=== PATIENT | male | born 1935 | race Caucasian/White ===

== ENCOUNTER 2018-10-17 12:10 | Inpatient (IN) | payer MEDICARE, OTHER ==
[~2018-10-17] VITALS: Ht 185.4 cm; Wt 77.0 kg
[~2018-10-17 12:10] MED LIST: HYDR-3972 PO; LISI10TA4 PO
[2018-10-17 13:13] LABS: BASOPHILS % (AUTO) 0.3 % (0-1); EOSINOPHILS % (AUTO) 0.2 % (0-6); HEMATOCRIT 31.8 % (42.0-52.0); HEMOGLOBIN 11.2 g/dl (14.0-17.9); LYMPHOCYTES # (AUTO) 0.7 X10'3 (1.1-4.8); LYMPHOCYTES % (AUTO) 9.6 % (21-51); MEAN CORPUSCULAR HEMOGLOBIN 33.1 PG (27.0-31.0); MEAN CORPUSCULAR HGB CONC 35.2 g/dL (33.0-36.5); MEAN CORPUSCULAR VOLUME 93.8 FL (78-98); MONOCYTES % (AUTO) 13.4 % (2-12); NEUTROPHILS # (AUTO) 5.7 X10'3 (1.8-7.7); NEUTROPHILS % (AUTO) 76.5 % (42-75); PLATELET COUNT 118 X10'3 (140-440); RED BLOOD COUNT 3.39 X10'6 (4.70-6.10); RED CELL DISTRIBUTION WIDTH 16.1 % (11.5-14.5); WHITE BLOOD COUNT 7.4 X10'3 (4.5-11.0)
[2018-10-17 13:27] LABS: CLARITY,URINE CLEAR (Clear); COLOR,URINE YELLOW (Yellow); GLUCOSE, URINE NEGATIVE (Neg); KETONES,URINE TRACE mg/dl (Neg); LEUKOCYTE ESTERASE ,URINE NEGATIVE (Neg); NITRITES, URINE NEGATIVE (Neg); OCCULT BLOOD,URINE NEGATIVE (Neg); PH,URINE 5.5 (4.8-8.0); PROTEIN,URINE NEGATIVE (Neg); UROBILINOGEN,URINE 0.2 E.U/dL (0.2-1.0)
[2018-10-17 13:30] LABS: UA COLLECTION TYPE FOLEY CATH
[2018-10-17 13:38] LABS: INR 1.2 INR; PARTIAL THROMBOPLASTIN TIME 29 SECONDS (22-32)
[2018-10-17 13:40] LABS: ALANINE AMINOTRANSFERASE 24 U/L (12-78); ALBUMIN 3.5 G/DL (3.4-5.0); ALBUMIN/GLOBULIN RATIO 0.9 (1.1-1.5); ALKALINE PHOSPHATASE 62 IU/L (46-116); ANION GAP 7 (8-16); ASPARTATE AMINO TRANSFERASE 30 U/L (10-37); BILIRUBIN,TOTAL 1.8 MG/DL (0.1-1.0); BLOOD UREA NITROGEN 26 MG/DL (7-18); BUN/CREATININE RATIO 25.7 (5.4-32.0); CALCIUM 10.1 MG/DL (8.5-10.1); CHLORIDE 106 MMOL/L (99-107); CREATINE KINASE 538 U/L (39-308); CREATININE 1.01 MG/DL (0.60-1.10); GLUCOSE 116 MG/DL (70-104); SODIUM 141 MMOL/L (135-145); TOTAL CARBON DIOXIDE 27.6 MMOL/L (24-32); TOTAL PROTEIN 7.4 G/DL (6.4-8.2); eGFR 70 ML/MIN
[2018-10-17] MEDS ORDERED: acetaminophen 325mg tablet PO PRN ×2 (13:45)
[2018-10-17] MEDS ORDERED: potassium Cl 40MEQ/NS 500ml 500 ML IV PRN ×2 (13:45)
[2018-10-17] MEDS: normal saline 1000ml 1,000 ML IV SCH ×2 (13:45→17:52)
[2018-10-17] MEDS ORDERED: magnesium 4gm in 100ml NS 100 ML IV PRN (13:45)
[2018-10-17] MEDS ORDERED: mag hydrox/Alum hydrox/simeth 30ml oral suspension PO PRN (13:45)
[2018-10-17] MEDS ORDERED: magnesium 2GM in 50ml NS 50 ML IV PRN (13:45)
[2018-10-17] MEDS ORDERED: docusate sod 100mg capsule PO PRN (13:45)
[2018-10-17] MEDS ORDERED: ondansetron/PF 4mg/2ml inj IV PRN (13:45)
[2018-10-17] MEDS ORDERED: magnesium Cl slow-release 64mg tablet PO PRN (13:45)
[2018-10-17] MEDS ORDERED: potassium Cl 20 mEq SR tablet PO PRN ×2 (13:45)
[2018-10-17] MEDS ORDERED: normal saline 1000ML IV soln IVB ONE (13:50)
[2018-10-17] MEDS ORDERED: enalaprilat dihydrate 2.5mg/2ml vial IV PRN (13:55)
[2018-10-17] MEDS: HYDROmorphone 1 mg/ml syringe IV PRN ×3 (13:59→23:24)
--- NOTE | 2018-10-17 14:47 | NUR ---
Pt with admit orders report called to floor. Pt at bedside no apparent distress
--- NOTE | 2018-10-17 14:59 | NUR ---
I have received report from Meg in the ED and gave report to Cassy RIVAS
[2018-10-17 15:00] VITALS: BP 113/83
[2018-10-17 18:00] VITALS: BP 130/70
--- NOTE | 2018-10-17 18:34 | NUR ---
Problems reprioritized. Patient report given, questions answered & plan of care reviewed with Katie RIVAS.
--- NOTE | 2018-10-17 19:00 | NUR ---
Patient in room ORTHO 4023. I have received report from Katie Benítez RN and had the opportunity to ask questions and assume patient care.
[2018-10-17 22:00] VITALS: BP 108/59
[2018-10-18] VITALS (27 sets, daily range): BP systolic 97–160; BP diastolic 40–89
[2018-10-18] MEDS: HYDROmorphone 1 mg/ml syringe IV PRN (03:33)
[2018-10-18] MEDS: normal saline 1000ml 1,000 ML IV SCH (03:39)
[2018-10-18 06:03] LABS: BASOPHILS % (AUTO) 0.5 % (0-1); EOSINOPHILS # (AUTO) 0.1 X10'3 (0-0.9); EOSINOPHILS % (AUTO) 2.1 % (0-6); HEMATOCRIT 25.5 % (42.0-52.0); HEMOGLOBIN 8.9 g/dl (14.0-17.9); LYMPHOCYTES # (AUTO) 0.9 X10'3 (1.1-4.8); LYMPHOCYTES % (AUTO) 15.2 % (21-51); MEAN CORPUSCULAR HGB CONC 34.8 g/dL (33.0-36.5); MEAN CORPUSCULAR VOLUME 94.9 FL (78-98); MEAN PLATELET VOLUME 7.8 FL (7.4-10.4); MONOCYTES # (AUTO) 0.9 X10'3 (0-0.9); MONOCYTES % (AUTO) 14.8 % (2-12); NEUTROPHILS # (AUTO) 3.9 X10'3 (1.8-7.7); NEUTROPHILS % (AUTO) 67.4 % (42-75); PLATELET COUNT 101 X10'3 (140-440); RED BLOOD COUNT 2.69 X10'6 (4.70-6.10); RED CELL DISTRIBUTION WIDTH 16.1 % (11.5-14.5); WHITE BLOOD COUNT 5.8 X10'3 (4.5-11.0)
[2018-10-18 06:36] LABS: ALANINE AMINOTRANSFERASE 21 U/L (12-78); ALBUMIN 2.7 G/DL (3.4-5.0); ALBUMIN/GLOBULIN RATIO 0.8 (1.1-1.5); ALKALINE PHOSPHATASE 47 IU/L (46-116); ANION GAP 6 (8-16); ASPARTATE AMINO TRANSFERASE 24 U/L (10-37); BILIRUBIN,TOTAL 0.9 MG/DL (0.1-1.0); BLOOD UREA NITROGEN 19 MG/DL (7-18); CALCIUM 8.9 MG/DL (8.5-10.1); CHLORIDE 107 MMOL/L (99-107); CREATINE KINASE 148 U/L (39-308); CREATININE 0.95 MG/DL (0.60-1.10); GLUCOSE 97 MG/DL (70-104); MAGNESIUM 1.6 MG/DL (1.5-2.4); POTASSIUM 3.7 MMOL/L (3.5-5.1); SODIUM 139 MMOL/L (135-145); TOTAL PROTEIN 5.9 G/DL (6.4-8.2); eGFR 75 ML/MIN
[2018-10-18] MEDS: lisinopril 10 MG tablet PO SCH (08:00)
[2018-10-18] MEDS: enoxaparin 40mg/0.4ml syringe SQ SCH (08:00)
[2018-10-18] MEDS: K and/or MAG REPLACEMENT MC SCH (08:00)
[2018-10-18] MEDS: HYDROmorphone inj. 0.5 MG/0.5 ML DISP.SYRIN IV PRN (08:52)
[2018-10-18] MEDS ORDERED: ePHEDrine 50MG/ML INJ. ONE (13:57)
[2018-10-18] MEDS ORDERED: sevoflurane 250ml liquid IH ONE (13:57)
[2018-10-18] MEDS ORDERED: dexamethasone sod phosphate 10mg/ml inj ONE (13:57)
[2018-10-18] MEDS ORDERED: ringers solution, lacted 1,000 ML IV SCH (13:59)
[2018-10-18] MEDS ORDERED: ondansetron/PF 4mg/2ml inj IV PRN (14:00)
[2018-10-18] MEDS ORDERED: HYDROmorphone inj. 0.5 MG/0.5 ML DISP.SYRIN IV PRN (14:00)
[2018-10-18] MEDS ORDERED: fentaNYL/PF 50MCG/1 ML 2ML syringe ONE (14:03)
[2018-10-18] MEDS ORDERED: LIDOcaine 2% (20mg/ml) 5ml vial ONE (14:23)
[2018-10-18] MEDS ORDERED: ceFAZolin 1000mg inj ONE ×2 (14:23)
[2018-10-18] MEDS ORDERED: rocuronium 10mg/ml inj IV ONE (14:23)
[2018-10-18] MEDS ORDERED: propofol inj 20 ML IV ONE (14:23)
[2018-10-18] MEDS ORDERED: glycopyrrolate 0.2mg/ml inj ONE ×2 (14:32→14:33)
[2018-10-18] MEDS ORDERED: neostigmine methylsulfate 1 MG/ML 10ml vial ONE ×2 (14:32→14:33)
[2018-10-18] MEDS ORDERED: ondansetron/PF 4mg/2ml inj ONE (14:33)
--- NOTE | 2018-10-18 14:55 | NUR ---
Received from OR via BED, accompanied by Anesthesiologist FLORIAN and report given by Anesthesiolgist. PT IS DROWSY, OXYGENATING WELL ON 10 LPM O2 VIA MASK, NO RESP DISTRESS NOTED. PT DENIES NAUSEA BUT C/O 10/10 R HIP PAIN. WILL BE MEDICATED PRN, SEE EMAR. 2 [place] DSGS TO R LATERAL HIP ARE CDI. PPP. FC PATENT, SCDS ON. VSS.
[2018-10-18] MEDS ORDERED: LORazepam 2 mg/ml vial IV ONE (15:30)
[2018-10-18] MEDS ORDERED: acetaminophen 1,000mg/100ml IV 100 ML IV ONE (15:30)
[2018-10-18] MEDS: morphine 4 MG/ML inj SYRINge IV PRN ×2 (15:32→15:42)
--- NOTE | 2018-10-18 17:50 | NUR ---
Report called to receiving nurse. Transferred via BED Belongings IN PT ROOM, DENTURES PLACED ON BEDSIDE TABLE. VSS, TOLERATING PO FLUIDS WELL. LIITLE TO NO C/O PAIN AFTER MEDS GIVEN IN PACU. PT HAD BEEN YELLING OUT, VERY AGITATED, NOT HAVING ANY RELIEF FROM HIS PAIN MEDS. ANESTHESIA ORDERED 1 MG IV ATIVAN AND IV TYLENOL. PT RESTED VERY WELL AFTER THAT, VITALS WERE STABLE, SAO2 100% ON 2 LPM O2/NC. PT REMAINED IN PACU UNTIL HE WAS AWAKE AND ALERT. RETURNED TO ORTHO FLOOR IN STABLE CONDITION. Special Issues communicated to receiving nurse.
--- NOTE | 2018-10-18 17:59 | NUR ---
Received to room 4023B Drowsy, cont pulse ox 100% 2L NC
--- NOTE | 2018-10-18 18:05 | NUR ---
Report to Fifi RIVAS
--- NOTE | 2018-10-18 18:28 | NUR ---
Patient in room ORTHO 4023. I have received report from JOSIE RIVAS and had the opportunity to ask questions and assume patient care.
[2018-10-18] MEDS: potassium cl 20mEq in 1/2 NS 1,000 ML IV SCH (19:47)
--- NOTE | 2018-10-18 23:54 | NUR ---
pt temp around 96, turned up temp in room and applied bear juan josé to pt Addendum: 10/19/18 at 0013 by Kira Gandhi RN wrong pt
[2018-10-19] VITALS (10 sets, daily range): BP systolic 97–138; BP diastolic 49–72
[2018-10-19] MEDS: cefazolin/dext.iso 2gm/100ml 100 ML IV SCH ×2 (00:06→08:29)
[2018-10-19] MEDS: HYDROmorphone inj. 0.5 MG/0.5 ML DISP.SYRIN IV PRN (00:21)
--- NOTE | 2018-10-19 00:30 | NUR ---
pt is more awake and now c/o pain, HR and temp increased slightly as well. PRN given per orders, pt repositioned and ice pack applied
[2018-10-19] MEDS: HYDROcodone/acetaminophen 5mg/325mg tablet PO PRN ×4 (02:48→20:18)
[2018-10-19] MEDS: potassium cl 20mEq in 1/2 NS 1,000 ML IV SCH ×2 (03:00→14:04)
--- NOTE | 2018-10-19 06:22 | NUR ---
Problems reprioritized. Patient report given, questions answered & plan of care reviewed with JOSIE RIVAS.
[2018-10-19 06:29] LABS: BASOPHILS % (AUTO) 0.4 % (0-1); EOSINOPHILS # (AUTO) 0.1 X10'3 (0-0.9); EOSINOPHILS % (AUTO) 2.3 % (0-6); HEMATOCRIT 23.2 % (42.0-52.0); LYMPHOCYTES # (AUTO) 0.6 X10'3 (1.1-4.8); LYMPHOCYTES % (AUTO) 10.2 % (21-51); MEAN CORPUSCULAR HEMOGLOBIN 32.7 PG (27.0-31.0); MEAN CORPUSCULAR HGB CONC 34.4 g/dL (33.0-36.5); MEAN PLATELET VOLUME 8.2 FL (7.4-10.4); MONOCYTES # (AUTO) 0.9 X10'3 (0-0.9); MONOCYTES % (AUTO) 15.1 % (2-12); NEUTROPHILS # (AUTO) 4.1 X10'3 (1.8-7.7); PLATELET COUNT 103 X10'3 (140-440); RED BLOOD COUNT 2.45 X10'6 (4.70-6.10); RED CELL DISTRIBUTION WIDTH 15.4 % (11.5-14.5); WHITE BLOOD COUNT 5.7 X10'3 (4.5-11.0)
[2018-10-19] MEDS ORDERED: CITA10TA14 PO (06:38)
[2018-10-19 06:43] LABS: ALANINE AMINOTRANSFERASE 16 U/L (12-78); ALBUMIN 2.4 G/DL (3.4-5.0); ALBUMIN/GLOBULIN RATIO 0.8 (1.1-1.5); ALKALINE PHOSPHATASE 46 IU/L (46-116); ANION GAP 7 (8-16); ASPARTATE AMINO TRANSFERASE 19 U/L (10-37); BILIRUBIN,TOTAL 1.1 MG/DL (0.1-1.0); BLOOD UREA NITROGEN 17 MG/DL (7-18); CALCIUM 8.6 MG/DL (8.5-10.1); CHLORIDE 105 MMOL/L (99-107); CREATININE 0.85 MG/DL (0.60-1.10); GLUCOSE 77 MG/DL (70-104); MAGNESIUM 1.6 MG/DL (1.5-2.4); POTASSIUM 4.2 MMOL/L (3.5-5.1); SODIUM 138 MMOL/L (135-145); TOTAL CARBON DIOXIDE 25.9 MMOL/L (24-32); TOTAL PROTEIN 5.5 G/DL (6.4-8.2); eGFR 86 ML/MIN
--- NOTE | 2018-10-19 06:53 | NUR ---
Report received from Fifi RIVAS
[2018-10-19 07:07] LABS: ANISOCYTOSIS 1+; PLATELET ESTIMATE DECREASED
[2018-10-19 07:09] LABS: POLYCHROMASIA 1+
[2018-10-19] MEDS: lisinopril 10 MG tablet PO SCH (08:00)
[2018-10-19] MEDS: enoxaparin 40mg/0.4ml syringe SQ SCH (08:00)
[2018-10-19] MEDS ORDERED: enoxaparin 40mg/0.4ml syringe SUBCUT SCH (08:00)
[2018-10-19] MEDS: K and/or MAG REPLACEMENT MC SCH (08:00)
--- NOTE | 2018-10-19 12:18 | NUR ---
Student Medication Administration:For this medication-pass time frame [id number], all medications were reviewed, administered and documented per hospital policy by Rocky Cannon. Student documentation:I have reviewed and agree with all interventions, assessments performed and documented by Rocky Cannon.
--- NOTE | 2018-10-19 18:45 | NUR ---
Report to Francisca RIVAS Student documentation: I have reviewed and agree with all interventions, assessments performed and documented by Kristin POLLARD. Student Medication Administration: For this medication-pass time frame, all medication were reviewed, dispensed, administered and documented per hospital policy by Kristin POLLARD.
--- NOTE | 2018-10-19 19:44 | NUR ---
report rec'd from jourdan Hoffmann. pt pulled out piv right before shift change and when nsg rounded to greet pt, he had pulled out his gandara catheter and poured his Armenian dsg in his stew. Pt is very very confused and RN had to feed him some vegetables and salad and bread or he would not have eaten at all. There is no blood or visible trauma to the penis. Pt denies pain to this area. Pt is p/o day 1, so we will leave out gandara, and PIV. there are no iv medications at this time and labs are wnl.
[2018-10-20 02:00] VITALS: BP 114/54
[2018-10-20] MEDS: HYDROcodone/acetaminophen 5mg/325mg tablet PO PRN ×2 (02:14→09:54)
[2018-10-20 06:00] VITALS: BP 103/62
[2018-10-20 06:25] LABS: BASOPHILS % (AUTO) 0.3 % (0-1); EOSINOPHILS # (AUTO) 0.2 X10'3 (0-0.9); EOSINOPHILS % (AUTO) 3.3 % (0-6); HEMATOCRIT 23.8 % (42.0-52.0); HEMOGLOBIN 8.4 g/dl (14.0-17.9); LYMPHOCYTES # (AUTO) 0.7 X10'3 (1.1-4.8); LYMPHOCYTES % (AUTO) 14.5 % (21-51); MEAN CORPUSCULAR HEMOGLOBIN 33.3 PG (27.0-31.0); MEAN CORPUSCULAR HGB CONC 35.3 g/dL (33.0-36.5); MEAN CORPUSCULAR VOLUME 94.4 FL (78-98); MEAN PLATELET VOLUME 7.8 FL (7.4-10.4); MONOCYTES # (AUTO) 0.9 X10'3 (0-0.9); MONOCYTES % (AUTO) 17.2 % (2-12); NEUTROPHILS # (AUTO) 3.3 X10'3 (1.8-7.7); NEUTROPHILS % (AUTO) 64.7 % (42-75); PLATELET COUNT 129 X10'3 (140-440); RED BLOOD COUNT 2.52 X10'6 (4.70-6.10); RED CELL DISTRIBUTION WIDTH 15.2 % (11.5-14.5); WHITE BLOOD COUNT 5.2 X10'3 (4.5-11.0)
--- NOTE | 2018-10-20 06:30 | NUR ---
report given to jourdan Hoffmann.
[2018-10-20 06:35] LABS: ALANINE AMINOTRANSFERASE 15 U/L (12-78); ALBUMIN 2.3 G/DL (3.4-5.0); ALBUMIN/GLOBULIN RATIO 0.6 (1.1-1.5); ALKALINE PHOSPHATASE 52 IU/L (46-116); ANION GAP 7 (8-16); ASPARTATE AMINO TRANSFERASE 17 U/L (10-37); BLOOD UREA NITROGEN 16 MG/DL (7-18); BUN/CREATININE RATIO 16.8 (5.4-32.0); CALCIUM 8.6 MG/DL (8.5-10.1); CHLORIDE 104 MMOL/L (99-107); CREATININE 0.95 MG/DL (0.60-1.10); GLUCOSE 103 MG/DL (70-104); MAGNESIUM 1.7 MG/DL (1.5-2.4); SODIUM 136 MMOL/L (135-145); TOTAL CARBON DIOXIDE 24.9 MMOL/L (24-32); TOTAL PROTEIN 5.9 G/DL (6.4-8.2); eGFR 75 ML/MIN
[2018-10-20] MEDS: K and/or MAG REPLACEMENT MC SCH (08:00)
[2018-10-20] MEDS: lisinopril 10 MG tablet PO SCH (08:24)
[2018-10-20] MEDS: enoxaparin 40mg/0.4ml syringe SQ SCH (08:25)
[2018-10-20 10:00] VITALS: BP 84/45
[2018-10-20] MEDS: potassium cl 20mEq in 1/2 NS 1,000 ML IV SCH (11:00)
--- NOTE | 2018-10-20 12:47 | NUR ---
Pt had low blood pressure's (80's/40's) at 1117. Patient was sitting up in chair, moved back to bed and put trendelenburg, Repeat blood pressure 121/60 after being moved back to bed. Tolerated transfer, 3 person assist.
[2018-10-20 18:00] VITALS: BP 119/59
--- NOTE | 2018-10-20 18:37 | NUR ---
Report given to Nevaeh RIVAS
--- NOTE | 2018-10-20 18:39 | NUR ---
PATIENT REPORT RECEIVED FROM JOSIE RIVAS.
--- NOTE | 2018-10-20 18:43 | NUR ---
Student documentation: I have reviewed and agree with all interventions, assessments performed and documented by Kristin POLLARD. Student Medication Administration: For this medication-pass time frame, all medication were reviewed, dispensed, administered and documented per hospital policy by Kristin POLLARD.
[2018-10-20 22:00] VITALS: BP 97/52
[2018-10-21] MEDS: HYDROcodone/acetaminophen 5mg/325mg tablet PO PRN ×2 (05:58→09:32)
[2018-10-21 06:00] VITALS: BP_SYST 127; BP_DIAS 6; BP_DIAS 60
[2018-10-21 06:22] LABS: BASOPHILS % (AUTO) 0.5 % (0-1); EOSINOPHILS # (AUTO) 0.1 X10'3 (0-0.9); EOSINOPHILS % (AUTO) 2.6 % (0-6); HEMATOCRIT 22.1 % (42.0-52.0); HEMOGLOBIN 7.7 g/dl (14.0-17.9); LYMPHOCYTES # (AUTO) 0.6 X10'3 (1.1-4.8); LYMPHOCYTES % (AUTO) 13.5 % (21-51); MEAN CORPUSCULAR HGB CONC 34.7 g/dL (33.0-36.5); MEAN CORPUSCULAR VOLUME 95.1 FL (78-98); MEAN PLATELET VOLUME 7.8 FL (7.4-10.4); MONOCYTES # (AUTO) 0.7 X10'3 (0-0.9); MONOCYTES % (AUTO) 15.5 % (2-12); NEUTROPHILS % (AUTO) 67.9 % (42-75); PLATELET COUNT 148 X10'3 (140-440); RED BLOOD COUNT 2.32 X10'6 (4.70-6.10); RED CELL DISTRIBUTION WIDTH 15.1 % (11.5-14.5); WHITE BLOOD COUNT 4.4 X10'3 (4.5-11.0)
--- NOTE | 2018-10-21 06:30 | NUR ---
Patient report received from Nevaeh RIVAS
[2018-10-21 06:41] LABS: ALANINE AMINOTRANSFERASE 12 U/L (12-78); ALBUMIN 2.3 G/DL (3.4-5.0); ALBUMIN/GLOBULIN RATIO 0.6 (1.1-1.5); ALKALINE PHOSPHATASE 52 IU/L (46-116); ANION GAP 5 (8-16); ASPARTATE AMINO TRANSFERASE 14 U/L (10-37); BILIRUBIN,TOTAL 1.1 MG/DL (0.1-1.0); BLOOD UREA NITROGEN 16 MG/DL (7-18); BUN/CREATININE RATIO 17.8 (5.4-32.0); CALCIUM 9.3 MG/DL (8.5-10.1); CHLORIDE 103 MMOL/L (99-107); GLUCOSE 96 MG/DL (70-104); MAGNESIUM 1.7 MG/DL (1.5-2.4); SODIUM 136 MMOL/L (135-145); TOTAL CARBON DIOXIDE 27.7 MMOL/L (24-32); TOTAL PROTEIN 5.9 G/DL (6.4-8.2); eGFR 80 ML/MIN
--- NOTE | 2018-10-21 06:48 | NUR ---
PATIENT REPORT GIVEN TO HOSSEIN RIVAS.
[2018-10-21] MEDS: enoxaparin 40mg/0.4ml syringe SQ SCH (07:48)
[2018-10-21 07:49] VITALS: BP 103/60
[2018-10-21] MEDS: K and/or MAG REPLACEMENT MC SCH (08:00)
[2018-10-21] MEDS: lisinopril 10 MG tablet PO SCH (08:00)
--- NOTE | 2018-10-21 08:46 | NUR ---
I let Veronica Hess know about patient hemoglobin and hematocrit this morning and she is okay with it and the patient is asymptomatic.
--- NOTE | 2018-10-21 09:25 | NUR ---
bladder scanned patient just now for 234ml. I will continue to monitor.
[2018-10-21 10:00] VITALS: BP 113/64
[2018-10-21] MEDS ORDERED: magnesium hydroxide 30ml (MOM) UD suspension PO ONE (11:35)
--- NOTE | 2018-10-21 11:51 | NUR ---
Student documentation: I have reviewed all interventions, assessments performed and documented by Diane Castro. Student Medication Administration: For this medication-pass time frame, all medication were reviewed, dispensed, administered and documented per hospital policy by Diane Castro.
--- NOTE | 2018-10-21 12:29 | NUR ---
I bladder scanned this patient for 323ml, will radutr.
--- NOTE | 2018-10-21 13:00 | NUR ---
patient report given to Myrna at RN at [facility]
--- NOTE | 2018-10-21 14:25 | NUR ---
Patient discharged to [facility] at this time with [facility]
== END 2018-10-21 14:25 | DRG 481 ==
LOC: ER 12:11 → ORTHO 4S 15:17 → CMPBEDREQ 16:09
PROVIDERS: ADMIT Family Medicine; ATTEND Family Medicine
PROC: 0QH606Z Insertion of Intramedullary Internal Fixation Device into Right Upper Femur, Open Approach (ICD-10-PCS; principal; 2018-10-18 13:57)
DX: S72.141A Displaced intertrochanteric fracture of right femur, initial encounter for closed fracture (principal); D62 Acute posthemorrhagic anemia; I10 Essential (primary) hypertension; W01.0XXA Fall on same level from slipping, tripping and stumbling without subsequent striking against object, initial encounter; R33.9 Retention of urine, unspecified; Z79.82 Long term (current) use of aspirin; Z85.038 Personal history of other malignant neoplasm of large intestine; Z85.819 Personal history of malignant neoplasm of unspecified site of lip, oral cavity, and pharynx; Z85.828 Personal history of other malignant neoplasm of skin; Z87.891 Personal history of nicotine dependence; Z92.21 Personal history of antineoplastic chemotherapy; Z92.3 Personal history of irradiation; Z80.0 Family history of malignant neoplasm of digestive organs; Z82.49 Family history of ischemic heart disease and other diseases of the circulatory system; Y93.89 Activity, other specified; Y92.89 Other specified places as the place of occurrence of the external cause
CPT/HCPCS: 36415; 71045; 73502; 76000; 80053; 81003; 82550; 83735; 85025; 85610; 85730; 86885; 86900; 86901; 87070; 93005; 97110; 97116; 97161; 97530; 97535; 99285; A6222; A6454; A7000; C1713; G0378; J0131; J0690; J1100; J1170; J1650; J2001; J2060; J2270; J2405; J2704; J2710; J3010; J3490; J7030; J7120

== ENCOUNTER 2019-03-03 07:03 | Day surgery (SDC) | payer MEDICARE, OTHER ==
[~2019-03-03] VITALS: Ht 185.4 cm; Wt 76.0 kg
[~2019-03-03 07:03] MED LIST changes: +CITA10TA14 PO; +FLO0.4C PO; -LISI10TA4 PO; +cefazolin/dext.iso 2gm/100 ML IV ONE; +famotidine 20mg tablet PO ONE; +ringers solution, lacted 1,000 ML IV SCH
[2019-03-03 07:20] VITALS: BP 156/73
[2019-03-03 07:54] LABS: CLARITY,URINE CLEAR (Clear); COLOR,URINE YELLOW (Yellow); GLUCOSE, URINE NEGATIVE (Neg); KETONES,URINE NEGATIVE (Neg); LEUKOCYTE ESTERASE ,URINE NEGATIVE (Neg); NITRITES, URINE NEGATIVE (Neg); OCCULT BLOOD,URINE NEGATIVE (Neg); PH,URINE 5.5 (4.8-8.0); PROTEIN,URINE NEGATIVE (Neg); UROBILINOGEN,URINE 0.2 E.U/dL (0.2-1.0)
[2019-03-03 08:01] LABS: UA COLLECTION TYPE CLN CATCH MIDSTREAM
[2019-03-03 08:16] LABS: BASOPHILS % (AUTO) 0.6 % (0-1); EOSINOPHILS # (AUTO) 0.1 X10'3 (0-0.9); EOSINOPHILS % (AUTO) 3.2 % (0-6); LYMPHOCYTES # (AUTO) 1.1 X10'3 (1.1-4.8); LYMPHOCYTES % (AUTO) 27.9 % (21-51); MEAN CORPUSCULAR HEMOGLOBIN 31.2 PG (27.0-31.0); MEAN CORPUSCULAR HGB CONC 33.9 g/dL (33.0-36.5); MEAN CORPUSCULAR VOLUME 91.9 FL (78-98); MONOCYTES # (AUTO) 0.6 X10'3 (0-0.9); MONOCYTES % (AUTO) 14.6 % (2-12); NEUTROPHILS # (AUTO) 2.2 X10'3 (1.8-7.7); NEUTROPHILS % (AUTO) 53.7 % (42-75); PRE OP HEMATOCRIT 37.9 % (42.0-52.0); PRE OP HEMOGLOBIN 12.8 g/dL (14.0-17.9); PRE OP PLATELET COUNT 130 X10'3 (140-440); RED BLOOD COUNT 4.12 X10'6 (4.70-6.10)
[2019-03-03] MEDS ORDERED: ringers solution, lacted 1,000 ML IV SCH (08:22)
[2019-03-03 08:23] LABS: ALBUMIN 3.4 G/DL (3.4-5.0); ALBUMIN/GLOBULIN RATIO 0.8 (1.1-1.5); ALKALINE PHOSPHATASE 82 IU/L (46-116); BLOOD UREA NITROGEN 18 MG/DL (7-18); BUN/CREATININE RATIO 15.7 (5.4-32.0); CALCIUM 9.6 MG/DL (8.5-10.1); CHLORIDE 108 MMOL/L (99-107); CREATININE 1.15 MG/DL (0.60-1.10); PRE OP ALT 15 U/L (30-65); PRE OP ANION GAP 8 (8-16); PRE OP AST 13 U/L (10-37); PRE OP GLUCOSE 98 MG/DL (70-104); PRE OP POTASSIUM 4.1 MMOL/L (3.4-5.1); PRE OP SODIUM 143 MMOL/L (135-145); TOTAL PROTEIN 7.5 G/DL (6.4-8.2); eGFR 60 ML/MIN
[2019-03-03] MEDS ORDERED: morphine 4 MG/ML inj SYRINge IV PRN ×2 (08:25)
[2019-03-03] MEDS ORDERED: ondansetron/PF 4mg/2ml inj IV PRN (08:25)
[2019-03-03] MEDS ORDERED: proCHLORperazine 10 MG/2 ml inj IV PRN (08:25)
[2019-03-03] MEDS ORDERED: meperidine/PF 25mg/ml syringe IV PRN ×3 (08:25)
[2019-03-03] MEDS ORDERED: LIDOcaine 1% 30ml preserv. free vial ONE (09:21)
[2019-03-03] MEDS ORDERED: BUPIVAcaine/PF 2.5 mg/ml (0.25%) 30ml vial ONE (09:21)
[2019-03-03] MEDS ORDERED: midazolam 2 mg/2 ml injection ONE (09:42)
[2019-03-03] MEDS ORDERED: fentaNYL/PF 50MCG/1 ML 2ML syringe ONE (09:42)
[2019-03-03] MEDS ORDERED: propofol inj 20 ML IV ONE (10:23)
[2019-03-03 10:29] VITALS: BP 132/64
[2019-03-03 10:39] VITALS: BP 168/74
[2019-03-03 10:49] VITALS: BP 158/71
--- NOTE | 2019-03-03 10:59 | NUR ---
ALL DC CRITERIA HAS BEEN MET. IV TAKEN OUT WITHOUT COMPLICATIONS. ALL INSTRUCTIONS COVERED AND ALL QUESTIONS ANSWERED. DRESSINGS CDI. OUT VIA WHEELCHAIR TO PERSONAL VEHICLE WHERE PATIENT WAS SECURED IN AND DRIVEN HOME BY FAMILY. DROVE PATIENT HOME. Addendum: 03/03/19 at 1117 by Franki Simental RN, RN Amended: Links added.
== END 2019-03-03 10:59 | disposition home or self-care (01) ==
LOC: PAS 07:03
PROVIDERS: ATTEND Surgery
DX: C85.84 Other specified types of non-Hodgkin lymphoma, lymph nodes of axilla and upper limb (principal); M85.80 Other specified disorders of bone density and structure, unspecified site; G47.00 Insomnia, unspecified; Z85.51 Personal history of malignant neoplasm of bladder; Z79.899 Other long term (current) drug therapy; Z90.49 Acquired absence of other specified parts of digestive tract; Z87.442 Personal history of urinary calculi
CPT/HCPCS: 36415; 38525; 80053; 81003; 85025; J2001; J2250; J2704; J3010; J3490; J7120; 88305; 88341; 88342; 88360; A4215; A4618; A7000

== ENCOUNTER 2020-07-07 10:51 | Emergency (ER) | payer OTHER, MEDICARE ==
[~2020-07-07] VITALS: Ht 185.4 cm; Wt 77.3 kg
[~2020-07-07 10:51] MED LIST changes: +ALBU8.5H8 IH; +CAPE150T5; +FURO-150 PO; +GABA-532 PO; +LISI-600 PO; +LOPE2TAB25 PO; +OXYB5TAB16 PO; +PHEN-887 PO; +PRED5TAB PO; +TRAZ-251 PO; -cefazolin/dext.iso 2gm/100 ML IV ONE; -famotidine 20mg tablet PO ONE; -ringers solution, lacted 1,000 ML IV SCH
--- NOTE | 2020-07-07 11:20 | NUR ---
PT IS HERE FOR SI AND SOB, PT IS HOOKED UP TO THE MONITOR.
[2020-07-07] MEDS ORDERED: normal saline 1000ML IV soln IVB ONE (11:50)
[2020-07-07 12:08] LABS: BASOPHILS % (AUTO) 0.2 % (0-1); EOSINOPHILS % (AUTO) 0.6 % (0-6); HEMATOCRIT 38.5 % (42.0-52.0); HEMOGLOBIN 12.9 g/dl (14.0-17.9); LYMPHOCYTES # (AUTO) 0.3 X10'3 (1.1-4.8); LYMPHOCYTES % (AUTO) 6.2 % (21-51); MEAN CORPUSCULAR HEMOGLOBIN 29.4 PG (27.0-31.0); MEAN CORPUSCULAR HGB CONC 33.4 g/dL (33.0-36.5); MEAN CORPUSCULAR VOLUME 87.9 FL (78-98); MEAN PLATELET VOLUME 8.6 FL (7.4-10.4); MONOCYTES # (AUTO) 0.5 X10'3 (0-0.9); NEUTROPHILS # (AUTO) 3.5 X10'3 (1.8-7.7); PLATELET COUNT 130 X10'3 (140-440); RED BLOOD COUNT 4.38 X10'6 (4.70-6.10); RED CELL DISTRIBUTION WIDTH 14.4 % (11.5-14.5); WHITE BLOOD COUNT 4.3 X10'3 (4.5-11.0)
[2020-07-07 12:18] LABS: ALANINE AMINOTRANSFERASE 17 U/L (12-78); ALBUMIN 2.4 G/DL (3.4-5.0); ALBUMIN/GLOBULIN RATIO 0.5 (1.1-1.5); ALKALINE PHOSPHATASE 37 IU/L (46-116); ANION GAP 9 (8-16); ASPARTATE AMINO TRANSFERASE 23 U/L (10-37); BILIRUBIN,TOTAL 0.7 MG/DL (0.1-1.0); BLOOD UREA NITROGEN 22 MG/DL (7-18); BUN/CREATININE RATIO 22.4 (5.4-32.0); CALCIUM 8.3 MG/DL (8.5-10.1); CHLORIDE 102 MMOL/L (99-107); CREATININE 0.98 MG/DL (0.60-1.10); GLUCOSE 109 MG/DL (70-104); POTASSIUM 3.6 MMOL/L (3.5-5.1); SODIUM 135 MMOL/L (135-145); TOTAL CARBON DIOXIDE 24.2 MMOL/L (24-32); TOTAL PROTEIN 7.3 G/DL (6.4-8.2); eGFR 72 ML/MIN
[2020-07-07 12:24] LABS: ETHANOL < 0.010 GM/DL (0.0-0.010)
--- NOTE | 2020-07-07 13:33 | NUR ---
PT REPORTS THAT HE CAN NOT GIVE A URINE SMPLE "IT JUST DOESNT WANT TO COME'.
[2020-07-07 15:01] LABS: URINE AMPHETAMINE SCREEN NEGATIVE (Neg); URINE BARBITUATE SCREEN NEGATIVE (Neg); URINE BENZODIAZEPINES SCREEN NEGATIVE (Neg); URINE CANNABINOID SCREEN NEGATIVE (Neg); URINE COCAINE SCREEN NEGATIVE (Neg); URINE METHADONE SCREEN NEGATIVE (Neg); URINE OPIATE SCREEN POSITIVE (Neg); URINE PHENCYCLIDINE SCREEN NEGATIVE (Neg)
[2020-07-07 17:31] LABS: CLARITY,URINE CLOUDY (Clear); COLOR,URINE YELLOW (Yellow); GLUCOSE, URINE NEGATIVE (Neg); KETONES,URINE NEGATIVE (Neg); LEUKOCYTE ESTERASE ,URINE NEGATIVE (Neg); NITRITES, URINE NEGATIVE (Neg); OCCULT BLOOD,URINE NEGATIVE (Neg); PROTEIN,URINE TRACE mg/dl (Neg); UROBILINOGEN,URINE 0.2 E.U/dL (0.2-1.0)
[2020-07-07 17:37] LABS: UA COLLECTION TYPE STRAIGHT CATH
[2020-07-07 17:38] LABS: AMORPHOUS URATES 4+; BACTERIA,URINE NONE SEEN /HPF (Neg); MUCUS STRANDS NONE SEEN /LPF (Neg); RBC,URINE NONE SEEN /HPF (0-2); SQUAMOUS EPITHELIAL CELL,UR FEW /LPF (FEW); WBC,URINE 0-4 /HPF (0-4)
--- NOTE | 2020-07-07 19:26 | NUR ---
SPOKE WITH ID MD FINNEGAN RE: PTS POSITIVE COVID AND INFULENZA TESTS FROM THE - SHE STATES IF THE PATIENT IS ON ROOM AIR AND AFEBRILE THEY CAN BE REMOVED FROM ISOLATION. SHE WILL WRITE A NOTE REGARDING THE PATIENT BEING ABLE TO BE REMOVED FROM ISOLATION TO FACILITATE PLACEMENT IF NECESSARY.
--- NOTE | 2020-07-07 19:33 | NUR ---
VERBAL ORDER FROM MD GARCIA TO CANCEL THE TROP SERIES.
--- NOTE | 2020-07-07 20:11 | NUR ---
pt called his girlfriend lillian
--- NOTE | 2020-07-07 22:06 | NUR ---
REC'D CALL FROM MD FINNEGAN - UPON FURTHER CHART REVIEW SHE WOULD LIKE TO LEAVE THE PATIENT IN ISOLATION DUE TO RECEIVING REMDESIVIR WHICH WOULD EXTEND THE ISOLATION PERIOD TO 20 DAYS
--- NOTE | 2020-07-08 05:36 | NUR ---
Pt is currently lying on his bed with no apparent s/s of distress. Patient has been laying in bed and has been agreeable with care. Patient denies SI at this time
--- NOTE | 2020-07-08 13:39 | NUR ---
PACKET FAXED TO [facility]
--- NOTE | 2020-07-08 15:19 | NUR ---
Pt has been resting quietly in room all day. Up Ad-cher. Ate 75% of lunch. Will continue to monitor.
--- NOTE | 2020-07-08 19:35 | NUR ---
PER KORINA WITH [facility] - PT DOESN'T MEET HOLD CRITERIA AND CAN BE D\C'D HOME - HE WAS UNABLE TO CONTACT FAMILY TO FACILITATE THIS.
--- NOTE | 2020-07-08 20:43 | NUR ---
Attempted to contact family. Cedrick (friend) updated on pt condition. Cedrick also unable to contact family.
--- NOTE | 2020-07-09 00:11 | NUR ---
RESTING COMFORTABLY IN BED, EYES CLOSED RESP EVEN
--- NOTE | 2020-07-09 02:28 | NUR ---
RESTING COMFORTABLY IN BED, EYES CLOSED RESP EVEN
--- NOTE | 2020-07-09 07:15 | NUR ---
Per [facility], pt was assessed last night. The 1799 was lifted as pt was found appropriate. Discussed situation with [facility] who put pt up for DC. Bart, pt's GF was contacted, but call went state to prerecorded msg indicating none available @ this time. [facility] also stated pt did not have a psych hx.
--- NOTE | 2020-07-09 07:55 | NUR ---
Attempted to call GF; call went straight to prerecorded msg indicating democrat not available @ this time.
--- NOTE | 2020-07-09 08:59 | NUR ---
Spoke w/ Celia, Case Mgmt seeking assistance in getting pt home. She indicated there isn't anything she can do to help and recommended we keep trying.
--- NOTE | 2020-07-09 09:16 | NUR ---
Pt's son called his cell phone while this RN was looking for number of friend called on previous shift. Son, Stephen ([phone]), lives near [facility]. Stephen will try to contact [employer] and call me back. If he is unable to contact [employer], he will drive up to peanut picker father. Addendum: 07/09/20 at 0929 by FOUZIA EC: Stephen ([phone])
--- NOTE | 2020-07-09 09:35 | NUR ---
Spoke w/ Az Lazar, seeking assistance w/ previous LE involvement r/t to gun removal in hopes of obtaining assistance w/ contacting [facility] so pt can be dc'd. Per Nagi, SO will call back when available.
--- NOTE | 2020-07-09 09:47 | NUR ---
Spoke w/ Cedrick ([phone]), pt's friend who called on pt's phone. He indicated unsuccessful contact with [employer] last night. 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
--- NOTE | 2020-07-09 10:00 | NUR ---
SO Jay #[id number] called. He indicated SO had been to residence as called by FARRAH Arriaga for possible [phone] which was assessed and not warranted. He will go to residence to determine if Bart is there and send her here to pick pt up. If he does not make contact, SO Jay will notify me.
--- NOTE | 2020-07-09 10:36 | NUR ---
SCSO called reporting that they went to the patients house. Unable to make contact with gf or anyone at the house and also noted that there was a large combination lock on the gate that they believe was not previously there.
--- NOTE | 2020-07-09 11:25 | NUR ---
Contacted back by son who reports he was able to make contact with chinmay Arriaga, who states she is "staying with a friend because she is sick and we need to find a place for him to go until she gets better." Son then called to ask us to call her. Multiple attempts made and sent to each time. Message left. Son reports he will attempt to call gf again and advise to call into the ER.
--- NOTE | 2020-07-09 11:43 | NUR ---
Pt's SO Bart called. She will be picking pt up in a few minutes. She was instructed to stay in her vehicle and call ED upon arrival as she is Covid + also. Bart verbally acknowledged.
[2020-07-09 12:15] VITALS: BP 116/63
== END 2020-07-09 12:15 | disposition home or self-care (01) ==
LOC: ER 10:51
DX: U07.1 COVID-19 (principal); R45.851 Suicidal ideations; R19.7 Diarrhea, unspecified; F32.9 Major depressive disorder, single episode, unspecified; G89.29 Other chronic pain; R05 Cough; R07.89 Other chest pain; I10 Essential (primary) hypertension; Z87.01 Personal history of pneumonia (recurrent); Z85.038 Personal history of other malignant neoplasm of large intestine; Z98.890 Other specified postprocedural states; Z79.899 Other long term (current) drug therapy
CPT/HCPCS: 36415; 71045; 80053; 80305; 80320; 81001; 83880; 84484; 85025; 93005; 96360; 99285; J7030